=== PATIENT | female | born 1930 | race Caucasian/White ===

== ENCOUNTER 2016-10-22 08:06 | Emergency (ER) | payer MEDICARE, MEDICAID ==
[2016-10-22 08:25] LABS: #Basophils 0.1 thou/uL (0.0-0.2); #Eosinphils 0.2 thou/uL (0.0-0.7); #Lymphocytes 4.2 thou/uL (1.20-3.40); #Monocytes 0.9 thou/uL (0.11-0.59); #Neutrophils 7.8 thou/uL (1.40-6.50); %Basophils 0.8 % (0.0-1.0); %Eosinophils 1.7 % (0.0-10.0); %Lymphocytes 31.7 % (21.0-51.0); %Monocytes 6.6 % (0.0-10.0); %Neutrophils 59.3 % (42.0-75.0); Hemoglobin 9.9 g/dL (12.0-16.0); Mean Corpuscular HGB CONC 31.7 g/dL (32.0-36.0); Mean Corpuscular Hemoglobin 27.4 pg (27.0-31.0); Mean Corpuscular Volume 86.5 fl (81.0-99.0); Mean Platelet Volume 6.7 fL (7.4-10.4); Platelet Count 276 thou/uL (130-400); RBC Distribution Width 15.5 % (11.5-14.5); White Blood Cell (WBC) Count 13.2 thou/uL (4.8-10.8)
[2016-10-22 08:31] LABS: INR-International Normal Ratio 3.6; Prothrombin Time 37.3 SEC (12.0-14.7)
[2016-10-22 08:41] LABS: ALT (SGPT) 13 U/L (8-55); AST (SGOT) 20 U/L (5-34); Albumin 2.9 g/dL (3.4-4.8); Alkaline Phosphatase 119 U/L (40-150); Anion Gap 13 mmol/L (10-20); BUN (Urea Nitrogen) 45 mg/dL (9.8-20.1); Bilirubin, Total 0.3 mg/dL (0.2-1.2); Calc. Creatinine Clearance 0 mL/min (70-130); Calcium 8.4 mg/dL (7.8-10.44); Carbon Dioxide 20 mmol/L (23-31); Chloride 116 mmol/L (98-107); Estimated GFR-MDRD 51; Globulin 2.7 g/dL (2.4-3.5); Glucose 116 mg/dL (83-110); Protein, Total 5.6 g/dL (6.0-8.3); Sodium 144 mmol/L (136-145)
--- NOTE | 2016-10-22 18:15 | RAD ---
PORTABLE CHEST 10/22/16 An AP portable film at 0814 is compared with 02/02/16 study. The heart is mildly enlarged but unchanged in size. The lungs are clear and fully inflated. No major infiltrate or effusion was seen. There is no vascular congestion. The trachea deviates substantiall y towards the right as it crosses the aortic arch. This was present in 2016, though is probably made more noticeable and prominent today by the patient being turned slightly for this picture. IMPRESSION: Cardiomegaly but no definite acute findings. POS: HOME
== END 2016-10-22 09:55 ==
LOC: BURERS 08:06
DX: R04.2 Hemoptysis (principal); D68.9 Coagulation defect, unspecified; I10 Essential (primary) hypertension; D64.9 Anemia, unspecified; E78.5 Hyperlipidemia, unspecified; K21.9 Gastro-esophageal reflux disease without esophagitis; I25.10 Atherosclerotic heart disease of native coronary artery without angina pectoris; G30.9 Alzheimer's disease, unspecified; F02.80 Dementia in other diseases classified elsewhere, unspecified severity, without behavioral disturbance, psychotic disturbance, mood disturbance, and anxiety; F31.9 Bipolar disorder, unspecified; F41.9 Anxiety disorder, unspecified; Z79.82 Long term (current) use of aspirin; Z79.01 Long term (current) use of anticoagulants; Z79.899 Other long term (current) drug therapy
CPT/HCPCS: 36415; 71010; 80053; 85025; 85610; 85730

== ENCOUNTER 2016-11-25 10:50 | Outpatient (CLI) | payer MEDICARE, MEDICAID ==
[2016-11-25 11:07] LABS: INR-International Normal Ratio 2.8; Prothrombin Time 31.1 SEC (12.0-14.7)
== END 2016-11-25 10:51 | disposition home or self-care (01) ==
LOC: BURLAB 10:50
PROVIDERS: ATTEND Clinical Nurse Specialist Medical-Surgical
DX: I26.99 Other pulmonary embolism without acute cor pulmonale (principal); I10 Essential (primary) hypertension
CPT/HCPCS: 36415; 85610

== ENCOUNTER 2016-12-09 02:20 | Outpatient (CLI) | payer MEDICARE, MEDICAID ==
[2016-12-09 07:48] LABS: INR-International Normal Ratio 2.3; Prothrombin Time 26.4 SEC (12.0-14.7)
== END 2016-12-09 02:21 | disposition home or self-care (01) ==
LOC: BURLABSP 02:20
PROVIDERS: ATTEND Clinical Nurse Specialist Medical-Surgical
DX: Z51.81 Encounter for therapeutic drug level monitoring (principal); I50.9 Heart failure, unspecified; I10 Essential (primary) hypertension; Z79.01 Long term (current) use of anticoagulants
CPT/HCPCS: 36415; 85610

== ENCOUNTER 2016-12-15 05:31 | Outpatient (CLI) | payer MEDICARE, MEDICAID ==
[2016-12-15 05:59] LABS: Bilirubin Negative (Negative); Blood, Urine Negative (Negative); Glucose, Urine (Dipstick) Negative (Negative); Leukocyte Negative (Negative); Nitrite Positive (Negative); Protein, Urine (Dipstick) Negative (Neg-Trace); Specific Gravity, Urine 1.015 (1.005-1.030); Urobilinogen 0.2 mg/dL (0.2-1.0); pH, Urine 5.5 (5.0-9.0)
[2016-12-15 06:07] LABS: Bacteria/HPF 4+ HPF (None Seen); Clarity Hazy (Clear); RBC/HPF None Seen HPF (0-3); Squamous Epithelial 0-3 HPF (0-3); WBC/HPF 0-3 HPF (0-3)
== END 2016-12-15 05:32 | disposition home or self-care (01) ==
LOC: BURLABSP 05:31
PROVIDERS: ATTEND Clinical Nurse Specialist Medical-Surgical
DX: N39.0 Urinary tract infection, site not specified (principal)
CPT/HCPCS: 81001; 87077; 87086; 87186

== ENCOUNTER 2016-12-23 00:54 | Outpatient (CLI) | payer MEDICARE, MEDICAID ==
[2016-12-23 05:31] LABS: INR-International Normal Ratio 2.7; Prothrombin Time 30.1 SEC (12.0-14.7)
== END 2016-12-23 00:55 | disposition home or self-care (01) ==
LOC: BURLABSP 00:54
PROVIDERS: ATTEND Clinical Nurse Specialist Medical-Surgical
DX: I26.99 Other pulmonary embolism without acute cor pulmonale (principal); I10 Essential (primary) hypertension
CPT/HCPCS: 36415; 85610

== ENCOUNTER 2017-07-11 17:39 | Emergency (ER) | payer MEDICARE, MEDICAID ==
[2017-07-11 18:38] LABS: #Basophils 0.1 thou/uL (0.0-0.2); #Eosinphils 0.4 thou/uL (0.0-0.7); #Monocytes 0.7 thou/uL (0.11-0.59); #Neutrophils 4.9 thou/uL (1.40-6.50); %Lymphocytes 33.2 % (21.0-51.0); %Monocytes 7.8 % (0.0-10.0); %Neutrophils 54.1 % (42.0-75.0); Hemoglobin 8.4 g/dL (12.0-16.0); Hypochromia MARKED = >30 cells (100X) (0-5/hpf); MDiff Complete? YES; Macrocytosis SLIGHT = 6-15 cells (100X) (0-5/hpf); Mean Corpuscular HGB CONC 29.3 g/dL (32.0-36.0); Mean Corpuscular Hemoglobin 20.1 pg (27.0-31.0); Mean Corpuscular Volume 68.6 fl (81.0-99.0); Mean Platelet Volume 6.5 fL (7.4-10.4); Microcytosis MODERATE=15-30 cells (100X) (0-5/hpf); Platelet Count 335 thou/uL (130-400); Polychromasia SLIGHT = 2-3 cells (100X) (0-2/hpf); RBC Distribution Width 17.9 % (11.5-14.5); Red Blood Cell (RBC) Count 4.16 mill/uL (4.20-5.40); White Blood Cell (WBC) Count 9.1 thou/uL (4.8-10.8)
[2017-07-11 18:39] LABS: ALT (SGPT) 16 U/L (8-55); AST (SGOT) 21 U/L (5-34); Albumin 3.9 g/dL (3.4-4.8); Alkaline Phosphatase 128 U/L (40-150); Anion Gap 13 mmol/L (10-20); BUN (Urea Nitrogen) 27 mg/dL (9.8-20.1); Bilirubin, Total 0.3 mg/dL (0.2-1.2); Calc. Creatinine Clearance 0 mL/min (70-130); Calcium 9.1 mg/dL (7.8-10.44); Carbon Dioxide 24 mmol/L (23-31); Chloride 111 mmol/L (98-107); Estimated GFR-MDRD 40; Globulin 3.6 g/dL (2.4-3.5); Glucose 104 mg/dL (83-110); Potassium 4.3 mmol/L (3.5-5.1); Protein, Total 7.5 g/dL (6.0-8.3); Sodium 144 mmol/L (136-145)
[2017-07-11 18:49] LABS: Bilirubin Negative (Negative); Blood, Urine Negative (Negative); Clarity Cloudy (Clear); Glucose, Urine (Dipstick) Negative (Negative); Leukocyte Trace (Negative); Nitrite Positive (Negative); Protein, Urine (Dipstick) Negative (Neg-Trace); Specific Gravity, Urine 1.015 (1.005-1.030); Urobilinogen 0.2 mg/dL (0.2-1.0); pH, Urine 5.5 (5.0-9.0)
[2017-07-11 18:50] LABS: Bacteria/HPF 4+ HPF (None Seen); Crystals/HPF None Seen HPF (Negative); Hyaline Casts/LPF NONE SEEN LPF (0-3 Hyaline); Other Casts/LPF None Seen LPF (0-3 Hyaline); Oval Fat Bodies/HPF None Seen HPF (None Seen); RBC/HPF None Seen HPF (0-3); Renal Epithelial None Seen HPF (0-3); Sperm/HPF None Seen HPF (None Seen); Transitional Epithelial NONE SEEN HPF (0-3); Trichomonas/HPF None Seen HPF (None Seen); Yeast-All Forms None Seen HPF (None Seen)
[2017-07-11] MEDS ORDERED: cefTRIAXone\\ROCEPHIN 2 GM VIAL ONE (18:57)
== END 2017-07-11 21:45 ==
LOC: BURERS 17:39
DX: D50.9 Iron deficiency anemia, unspecified (principal); N39.0 Urinary tract infection, site not specified; I49.9 Cardiac arrhythmia, unspecified; I48.91 Unspecified atrial fibrillation; K21.9 Gastro-esophageal reflux disease without esophagitis; E78.5 Hyperlipidemia, unspecified; I10 Essential (primary) hypertension; G30.9 Alzheimer's disease, unspecified; F02.80 Dementia in other diseases classified elsewhere, unspecified severity, without behavioral disturbance, psychotic disturbance, mood disturbance, and anxiety; F31.9 Bipolar disorder, unspecified; F41.9 Anxiety disorder, unspecified; Z79.899 Other long term (current) drug therapy; Z79.82 Long term (current) use of aspirin
CPT/HCPCS: 80053; 81003; 81015; 82274; 85025; 96365; J0696